=== PATIENT | female | born 1995 ===

== ENCOUNTER → 2021-04-11 16:56 | Outpatient (CLI) | payer OTHER, MEDICAID, SELFPAY ==
[2021-04-11 17:49] LABS: COVID19 -Nasal RAPID Negative (Negative)
== END ==
PROVIDERS: Visit Provider Nurse Practitioner Family
DX: Z20.822 Contact with and (suspected) exposure to COVID-19 (principal)
CPT/HCPCS: 87635

== ENCOUNTER → 2021-04-22 10:27 | Outpatient (CLI) | payer OTHER, MEDICAID, SELFPAY ==
[2021-04-22 12:15] LABS: COVID19 -Nasal RAPID Negative (Negative)
== END ==
PROVIDERS: Visit Provider Nurse Practitioner Family
DX: Z20.822 Contact with and (suspected) exposure to COVID-19 (principal)
CPT/HCPCS: 87635; C9803